=== PATIENT | female | born 1970 | race Caucasian/White ===

== ENCOUNTER 2021-01-10 16:17 | Emergency (ER) | payer MEDICARE, MEDICAID ==
[~2021-01-10] VITALS: Ht 162.6 cm; Wt 66.8 kg
[2021-01-10 17:05] VITALS: BP 97/59
[2021-01-10] MEDS ORDERED: CYCL-1 PO (17:17)
== END 2021-01-10 18:17 | disposition home or self-care (01) ==
LOC: ER 16:18
DX: S16.1XXA Strain of muscle, fascia and tendon at neck level, initial encounter (principal); M54.2 Cervicalgia; R51.9 Headache, unspecified; Z98.890 Other specified postprocedural states; Z79.899 Other long term (current) drug therapy; X58.XXXA Exposure to other specified factors, initial encounter; Y93.89 Activity, other specified; Y92.89 Other specified places as the place of occurrence of the external cause; Y99.8 Other external cause status
CPT/HCPCS: 99283

== ENCOUNTER 2021-02-02 09:24 | Emergency (ER) | payer MEDICARE, MEDICAID ==
[~2021-02-02] VITALS: Ht 162.6 cm; Wt 78.2 kg
[~2021-02-02 09:24] MED LIST: CYCL-1 PO
[2021-02-02 09:29] VITALS: BP 131/80
[2021-02-02] MEDS ORDERED: OXYC-145 PO (10:38)
[2021-02-02] MEDS ORDERED: PRED20TA PO (10:38)
[2021-02-02] MEDS ORDERED: oxyCODONE/APAP 5-325mg tablet PO ONE (10:50)
[2021-02-02] MEDS ORDERED: OXYC5CAP19 PO (10:58)
[2021-02-02] MEDS ORDERED: oxyCODONE IR 5mg (immed. release) tablet PO ONE (11:00)
[2021-02-02] MEDS ORDERED: OXYC-481 PO (15:18)
== END 2021-02-02 12:37 | disposition home or self-care (01) ==
LOC: ER 09:25
DX: M54.12 Radiculopathy, cervical region (principal); Z88.5 Allergy status to narcotic agent; Z79.899 Other long term (current) drug therapy; Z88.6 Allergy status to analgesic agent
CPT/HCPCS: 99283

== ENCOUNTER 2021-06-23 14:28 | Emergency (ER) | payer MEDICARE, MEDICAID ==
[~2021-06-23] VITALS: Ht 162.6 cm; Wt 66.8 kg
[2021-06-23 14:36] VITALS: BP 105/75
[2021-06-23] MEDS ORDERED: diazepam 5mg tablet PO ONE (15:25)
[2021-06-23] MEDS ORDERED: DIAZ-351 PO (15:26)
[2021-06-23] MEDS ORDERED: METH-797 PO (15:26)
== END 2021-06-23 15:53 | disposition home or self-care (01) ==
LOC: ER 14:30
DX: S46.812A Strain of other muscles, fascia and tendons at shoulder and upper arm level, left arm, initial encounter (principal); S46.012A Strain of muscle(s) and tendon(s) of the rotator cuff of left shoulder, initial encounter; S16.1XXA Strain of muscle, fascia and tendon at neck level, initial encounter; G89.29 Other chronic pain; M25.512 Pain in left shoulder; R51.9 Headache, unspecified; M81.0 Age-related osteoporosis without current pathological fracture; Z88.8 Allergy status to other drugs, medicaments and biological substances; Z88.5 Allergy status to narcotic agent; Z79.899 Other long term (current) drug therapy; X58.XXXA Exposure to other specified factors, initial encounter; Y93.89 Activity, other specified; Y92.89 Other specified places as the place of occurrence of the external cause; Y99.8 Other external cause status
CPT/HCPCS: 99283

== ENCOUNTER 2022-01-16 20:00 | Emergency (ER) | payer MEDICARE, MEDICAID ==
[~2022-01-16] VITALS: Ht 162.6 cm; Wt 66.8 kg
[~2022-01-16 20:00] MED LIST changes: +DIAZ-351 PO; +METH-797 PO
[2022-01-16 20:17] VITALS: BP 106/88
--- NOTE | 2022-01-16 21:10 | NUR ---
PT GIVEN ICE CHIPS
[2022-01-16] MEDS ORDERED: benzonatate 100mg capsule PO ONE (21:45)
[2022-01-16] MEDS ORDERED: LORazepam 1 MG tablet PO ONE (21:45)
[2022-01-16] MEDS ORDERED: CODE120S2 PO (21:45)
[2022-01-17] MEDS ORDERED: GUAI118S13 PO (17:32)
== END 2022-01-16 21:58 | disposition home or self-care (01) ==
LOC: ER 20:01
DX: R05.9 Cough, unspecified (principal); G43.909 Migraine, unspecified, not intractable, without status migrainosus; M19.90 Unspecified osteoarthritis, unspecified site; G89.29 Other chronic pain; Z90.710 Acquired absence of both cervix and uterus; Z98.890 Other specified postprocedural states; Z72.89 Other problems related to lifestyle; Z88.6 Allergy status to analgesic agent; Z88.5 Allergy status to narcotic agent; Z79.899 Other long term (current) drug therapy
CPT/HCPCS: 71046; 99283

== ENCOUNTER 2022-05-29 13:11 | Emergency (ER) | payer MEDICAID, MEDICARE ==
[~2022-05-29] VITALS: Ht 162.6 cm; Wt 66.4 kg
[2022-05-29] MEDS ORDERED: normal saline 1000ML IV soln IVB ONE (14:00)
[2022-05-29] MEDS ORDERED: BENZ-38 PO (15:30)
[2022-05-29] MEDS ORDERED: benzonatate 100mg capsule PO ONE (15:35)
[2022-05-29 16:04] VITALS: BP 149/88
== END 2022-05-29 16:14 | disposition home or self-care (01) ==
LOC: ER 13:12
DX: J06.9 Acute upper respiratory infection, unspecified (principal); Z20.822 Contact with and (suspected) exposure to COVID-19; G43.909 Migraine, unspecified, not intractable, without status migrainosus; G89.29 Other chronic pain; Z98.890 Other specified postprocedural states; Z88.6 Allergy status to analgesic agent; Z88.5 Allergy status to narcotic agent; Z79.899 Other long term (current) drug therapy; Z79.1 Long term (current) use of non-steroidal anti-inflammatories (NSAID)
CPT/HCPCS: 71045; 87502; 87503; 87635; 96360; 99284; C9803; J7030

== ENCOUNTER 2023-05-04 12:25 | Emergency (ER) | payer MEDICARE, MEDICAID ==
[2023-05-04] MEDS ORDERED: SULF1TAB49 PO (17:18)
[2023-05-04] MEDS ORDERED: OXYC5TAB2 PO (17:18)
== END 2023-05-04 16:30 | disposition left against medical advice (07) ==
LOC: ER 12:25
DX: M25.512 Pain in left shoulder (principal); Z53.21 Procedure and treatment not carried out due to patient leaving prior to being seen by health care provider

== ENCOUNTER 2023-05-04 16:27 | Emergency (ER) | payer MEDICARE, MEDICAID ==
[~2023-05-04] VITALS: Ht 162.6 cm; Wt 79.1 kg
[2023-05-04 16:55] VITALS: BP 118/91; PULSE 78; RESP 18; TEMP 97.8; O2SAT 98
[2023-05-04] MEDS ORDERED: SULF1TAB49 PO (17:18)
[2023-05-04] MEDS ORDERED: OXYC5TAB2 PO (17:18)
== END 2023-05-04 17:26 | disposition home or self-care (01) ==
LOC: ER 16:27
DX: M25.512 Pain in left shoulder (principal); R30.0 Dysuria; G43.909 Migraine, unspecified, not intractable, without status migrainosus; M19.90 Unspecified osteoarthritis, unspecified site; Z88.6 Allergy status to analgesic agent; Z88.5 Allergy status to narcotic agent; Z79.899 Other long term (current) drug therapy; Z79.2 Long term (current) use of antibiotics; Z90.710 Acquired absence of both cervix and uterus
CPT/HCPCS: 99283

== ENCOUNTER 2024-03-30 12:46 | Emergency (ER) | payer MEDICARE, MEDICAID ==
[~2024-03-30 12:46] MED LIST changes: +DICL50TA8 PO
== END 2024-03-30 15:23 | disposition left against medical advice (07) ==
LOC: ER 12:47
DX: F41.9 Anxiety disorder, unspecified (principal); Z53.21 Procedure and treatment not carried out due to patient leaving prior to being seen by health care provider; Z88.6 Allergy status to analgesic agent; Z88.8 Allergy status to other drugs, medicaments and biological substances

== ENCOUNTER 2024-04-03 20:05 | Emergency (ER) | payer MEDICARE, MEDICAID ==
[~2024-04-03] VITALS: Ht 162.6 cm; Wt 83.4 kg
[2024-04-03 20:08] VITALS: O2SAT 97
[2024-04-03 20:53] LABS: BASOPHILS % (AUTO) 0.5 % (0-1); EOSINOPHILS # (AUTO) 0.2 X10'3 (0-0.9); EOSINOPHILS % (AUTO) 2.9 % (0-6); HEMATOCRIT 41.8 % (35.0-45.0); HEMOGLOBIN 13.9 g/dl (12.0-16.0); LYMPHOCYTES # (AUTO) 1.9 X10'3 (1.1-4.8); LYMPHOCYTES % (AUTO) 23.1 % (21-51); MEAN CORPUSCULAR HEMOGLOBIN 28.3 PG (27.0-31.0); MEAN CORPUSCULAR HGB CONC 33.3 g/dL (33.0-36.5); MEAN CORPUSCULAR VOLUME 85.1 FL (78-98); MEAN PLATELET VOLUME 7.8 FL (7.4-10.4); MONOCYTES # (AUTO) 0.3 X10'3 (0-0.9); MONOCYTES % (AUTO) 4.2 % (2-12); NEUTROPHILS # (AUTO) 5.7 X10'3 (1.8-7.7); NEUTROPHILS % (AUTO) 69.3 % (42-75); PLATELET COUNT 312 X10'3 (140-440); RED BLOOD COUNT 4.91 X10'6 (4.20-5.60); RED CELL DISTRIBUTION WIDTH 15.7 % (11.5-14.5); WHITE BLOOD COUNT 8.2 X10'3 (4.5-11.0)
[2024-04-03] MEDS ORDERED: iohexol 350MG/ML 100ml bottle IV ONE (20:54)
[2024-04-03 21:06] LABS: ALANINE AMINOTRANSFERASE 22 U/L (12-78); ALBUMIN 3.8 G/DL (3.4-5.0); ALBUMIN/GLOBULIN RATIO 0.9 (1.1-1.5); ALKALINE PHOSPHATASE 85 IU/L (46-116); ANION GAP 9 (8-16); ASPARTATE AMINO TRANSFERASE 11 U/L (10-37); BILIRUBIN,TOTAL 0.2 MG/DL (0.1-1.0); BLOOD UREA NITROGEN 20 MG/DL (7-18); BUN/CREATININE RATIO 19.2 (10.0-20.0); CHLORIDE 103 MMOL/L (99-107); CREATININE 1.04 MG/DL (0.40-0.90); GLUCOSE 147 MG/DL (70-104); POTASSIUM 4.4 MMOL/L (3.5-5.1); SODIUM 139 MMOL/L (135-145); TOTAL PROTEIN 7.9 G/DL (6.4-8.2); eCRCL 53 ML/MIN; eGFR 55 ML/MIN
[2024-04-03 21:13] LABS: LIPASE 88 U/L (16-77); PRO BRAIN NATRIURETIC PEPTIDE 53 PG/ML (0-125)
[2024-04-03 21:24] LABS: BILIRUBIN,URINE NEGATIVE (Neg); CLARITY,URINE SLIGHTLY CLOUDY (Clear); COLOR,URINE YELLOW (Yellow); GLUCOSE, URINE NEGATIVE (Neg); KETONES,URINE NEGATIVE (Neg); LEUKOCYTE ESTERASE ,URINE MODERATE (Neg); NITRITES, URINE POSITIVE (Neg); OCCULT BLOOD,URINE MODERATE (Neg); PROTEIN,URINE NEGATIVE (Neg); UROBILINOGEN,URINE 0.2 E.U/dL (0.2-1.0)
[2024-04-03 21:31] LABS: UA COLLECTION TYPE CLN CATCH MIDSTREAM
[2024-04-03 21:32] LABS: BACTERIA,URINE 4+ /HPF (Neg); SQUAMOUS EPITHELIAL CELL,UR FEW /LPF (FEW); WBC,URINE 50-100 /HPF (0-4)
[2024-04-03] MEDS: HYDROmorphone 1 mg/ml syringe IV ONE (21:45)
[2024-04-03] MEDS: CefTRIAXone/D5W-Rocephin 1gm 50 ML IV ONE (22:33)
[2024-04-03] MEDS ORDERED: CEFD300C3 PO (23:25)
[2024-04-03 23:29] VITALS: BP 114/79; PULSE 70
[2024-04-03 23:38] VITALS: RESP 16
[2024-04-03] MEDS: HYDROmorphone inj. 0.5 MG/0.5 ML DISP.SYRIN IV ONE (23:38)
[2024-04-03] MEDS ORDERED: HYDR-3965 PO (23:49)
[2024-04-03] MEDS ORDERED: ONDA-243 PO (23:49)
[2024-04-03] MEDS ORDERED: OXYC-658 PO (23:51)
[2024-04-03 23:53] VITALS: TEMP 98
== END 2024-04-03 23:56 | disposition home or self-care (01) ==
LOC: ER 20:06
DX: N39.0 Urinary tract infection, site not specified (principal); R10.12 Left upper quadrant pain; R07.89 Other chest pain; G89.29 Other chronic pain; M19.90 Unspecified osteoarthritis, unspecified site; G43.909 Migraine, unspecified, not intractable, without status migrainosus; Z98.890 Other specified postprocedural states; Z87.442 Personal history of urinary calculi; Z88.5 Allergy status to narcotic agent; Z90.710 Acquired absence of both cervix and uterus; Z79.899 Other long term (current) drug therapy
CPT/HCPCS: 36415; 71045; 71275; 74176; 80053; 81001; 83690; 83880; 84484; 85025; 87077; 87088; 87186; 93005; 96365; 96375; 96376; 99285; J0696; J1171; Q9967